=== PATIENT | male | born 1995 | race African-American/Black ===

== ENCOUNTER 2019-11-04 14:49 | Emergency (ER) | payer OTHER ==
[~2019-11-04] VITALS: Ht 180.3 cm; Wt 70.3 kg
[2019-11-04 14:54] VITALS: Ht 180.3 cm; Wt 70.3 kg
[2019-11-04 15:25] LABS: BASOPHIL % 0.8 % (0-2); PLATELET COUNT 219 x10^3mcL (130-400); RED CELL DISTRIBUTION WIDTH 13.6 % (11.5-14.5)
[2019-11-04 15:29] LABS: CALCIUM 9.1 mg/dL (8.5-10.1); CARBON DIOXIDE 29.7 mmol/L (21-32); CHLORIDE SERUM 106 mmol/L (98-107); CREATININE SERUM 1.1 mg/dL (0.7-1.3); GFR1 > 60 mL/min; GLUCOSE SERUM 100 mg/dL (74-106); SODIUM SERUM 143 mmol/L (136-145)
[2019-11-04 15:41] LABS: ALKALINE PHOSPHATASE 70 U/L (46-116); ALT/SGPT 37 U/L (16-63); AST/SGOT 26 U/L (15-37); BILIRUBIN TOTAL 0.5 mg/dL (0.20-1.00); T4(THYROXINE) 7.2 ug/dL (4.7-13.3); TOTAL PROTEIN, SERUM 7.4 g/dL (6.4-8.2)
[2019-11-04 16:04] LABS: AMPHETAMINE QUAL UR NONE DETECTED (See below)
[2019-11-04 18:35] VITALS: BP 139/77
== END 2019-11-04 18:35 | disposition left against medical advice (07) ==
LOC: ED 14:49
PROVIDERS: Emergency Medicine
DX: F41.9 Anxiety disorder, unspecified (principal); F17.210 Nicotine dependence, cigarettes, uncomplicated; F12.90 Cannabis use, unspecified, uncomplicated
CPT/HCPCS: 36415; 99406; G0480

== ENCOUNTER 2019-11-04 20:32 | Emergency (ER) | payer OTHER ==
[~2019-11-04] VITALS: Ht 180.3 cm; Wt 70.1 kg
[2019-11-06 01:17] VITALS: BP 135/77
== END 2019-11-06 01:17 | disposition home or self-care (01) ==
LOC: ED 20:32
DX: F31.9 Bipolar disorder, unspecified (principal); S62.335A Displaced fracture of neck of fourth metacarpal bone, left hand, initial encounter for closed fracture; X58.XXXA Exposure to other specified factors, initial encounter; Y93.89 Activity, other specified; Y92.89 Other specified places as the place of occurrence of the external cause; Y99.8 Other external cause status
CPT/HCPCS: J1200; J1630; J2060; Q0092